=== PATIENT | female | born 1975 | race Caucasian/White ===

== ENCOUNTER → 2018-12-18 | Outpatient (CLI) | payer BC ==
[~2018-12-18] MED LIST: CHOL3000 PO
[2018-12-18 14:00] LABS: BASOPHILS % (AUTO) 0 % (0-1); EOSINOPHILS # (AUTO) 0.06 x10^3/uL (0-0.4); EOSINOPHILS % (AUTO) 1 % (1-7); LYMPHOCYTES # (AUTO) 0.65 x10^3/uL (1-3.4); LYMPHOCYTES % (AUTO) 8 % (22-44); MD NO; MEAN CORPUSCULAR HEMOGLOBIN 28.4 pg (27.0-34.8); MEAN CORPUSCULAR HGB CONC 34.1 g/dL (32.4-35.8); MEAN CORPUSCULAR VOLUME 83.4 fL (80-100); MEAN PLATELET VOLUME 8.7 fL (7.4-10.4); MONOCYTES # (AUTO) 0.18 x10^3/uL (0.2-0.8); MONOCYTES % (AUTO) 2 % (2-9); NEUTROPHILS # (AUTO) 7.33 x10^3/uL (1.8-6.8); NEUTROPHILS % (AUTO) 89 % (42-75); PLATELET COUNT 247 x10^3/uL (130-400); RED CELL DISTRIBUTION WIDTH 12.7 % (9.6-15.2)
[2018-12-18 14:11] LABS: MICROSCOPIC AUTO
[2018-12-18 14:11] LABS: ANION GAP 8 mmol/L (5-15); CHLORIDE 104 mmol/L (98-107); CREATININE 0.95 mg/dL (0.55-1.02)
[2018-12-18 14:18] LABS: CULTURE INDICATED? NO
== END | disposition home or self-care (01) ==
LOC: STAR 13:03
PROVIDERS: ATTEND Obstetrics & Gynecology Gynecology
DX: Z01.818 Encounter for other preprocedural examination (principal); Z88.2 Allergy status to sulfonamides; Z88.0 Allergy status to penicillin
CPT/HCPCS: 36415; 80048; 81001; 84703; 85025

== ENCOUNTER 2018-12-25 11:38 | Day surgery (SDC) | payer BC ==
[~2018-12-25] VITALS: Ht 162.6 cm; Wt 71.4 kg
[~2018-12-25 11:38] MED LIST changes: +LIDOCAINE 1%-EPI 1:100K, 20ML ONE
[2018-12-25] MEDS ORDERED: MIDAZOLAM 1 MG/ML, 2ML ONE (11:39)
[2018-12-25] MEDS ORDERED: FENTANYL PF 100 MCG/2ML ONE (11:39)
[2018-12-25 11:58] VITALS: BP 104/70
[2018-12-25] MEDS ORDERED: ACETAMINOPHEN 500 MG TABLET PO ONE (12:00)
[2018-12-25] MEDS ORDERED: ONDANSETRON ODT 8 MG PO ONE (12:00)
[2018-12-25] MEDS ORDERED: LACTATED RINGERS 1,000 ML IV SCH (12:01)
[2018-12-25] MEDS ORDERED: LORazepam 2 MG/ML, 1ML IVPush PRN (12:30)
[2018-12-25] MEDS ORDERED: HYDROmorphone 2 MG/ML, 1ML IVPush PRN (12:30)
[2018-12-25] MEDS ORDERED: OXYcodone 5 MG/5 ML ORAL.SOL UDC PO PRN (12:30)
[2018-12-25] MEDS ORDERED: FENTANYL PF 100 MCG/2ML IV PRN (12:30)
[2018-12-25] MEDS ORDERED: PROMETHAZINE 25 MG/ML, 1ML IV PRN (12:30)
[2018-12-25 12:53] LABS: HCG UR SG 1.022 (1.003-1.030)
[2018-12-25] MEDS ORDERED: SUGAMMADEX 200 MG/2 ML IVPush ONE (13:18)
[2018-12-25] MEDS ORDERED: CEFAZOLIN 1,000 MG ONE (13:21)
[2018-12-25] MEDS ORDERED: SUCCINYLCHOLINE 20 MG/ML, 10ML ONE (13:21)
[2018-12-25] MEDS ORDERED: ROCURONIUM 10 MG/ML,10ML ONE (13:21)
[2018-12-25] MEDS ORDERED: KETOROLAC 30 MG/1 ML ONE (13:21)
[2018-12-25] MEDS ORDERED: PROPOFOL 10 MG/ML, 20ML ONE (13:21)
[2018-12-25] MEDS ORDERED: OXYcodone 5 MG/5 ML ORAL.SOL UDC ONE (14:32)
== END 2018-12-25 16:45 | disposition home or self-care (01) ==
LOC: OUT 11:38
PROVIDERS: ATTEND Obstetrics & Gynecology Gynecology
DX: Z30.2 Encounter for sterilization (principal); J45.909 Unspecified asthma, uncomplicated; Z88.1 Allergy status to other antibiotic agents; Z88.0 Allergy status to penicillin
CPT/HCPCS: 58661; 81025; 88302; J0330; J0690; J1885; J2250; J2704; J3010; J3490; J7120; Q0162